=== PATIENT | female | born 1975 | race Two or more races ===

== ENCOUNTER 2025-03-03 08:01 | Emergency (ER) | payer OTHER ==
[~2025-03-03] VITALS: Ht 162.6 cm; Wt 114.4 kg
[~2025-03-03 08:01] MED LIST: CETI1TAB36 PO
--- NOTE | 2025-03-03 08:17 | ED.PDOC ---
HPI Comments 49-year-old female presents to the ED via EMS with a chief complaint of high blood pressure onset today (03/03/25). Per EMS, patient was experiencing dizziness, frequent urination, chest pressure, checked BP and it was over 200 systolic. Upon EMS arrival patient's BP was 239 systolic. Patient is concern for possible , LMP was August 2024, has not checked for . P:6 A:5. She took HTN medication at 01:00. PMHx HTN. Denies fever, chills, shortness of breath, abdominal pain, nausea, vomiting, diarrhea. No other symptoms or modifying factors present at this time. Chief Complaint: High Blood Pressure Time Seen by MD: 08:15 Reviewed Notes: Medications, Allergies Allergies: Coded Allergies: Cephalexin (Unverified Allergy, 01/15/13) Home Meds Active Scripts Amlodipine Besylate (NORVASC TABLET) 5 Mg Tb, 1 TAB PO DAILY for 10 Days, #10 TAB 5 Refills Prov:TANISHA CEJA MD 03/03/25 Lisinopril (Lisinopril) 5 Mg Tab, 5 MG PO BID for 10 Days, #20 TAB Prov:TANISHA CEJA MD 03/03/25 Reported Medications Cetirizine Hcl (ZYRTEC ALLERGY) 10 Mg Tab, 10 MG PO DAILY 01/15/13 Information Source: Patient, Emergency Med Personnel Mode of Arrival: EMS Severity: Moderate Timing: Days Duration: Since onset Prehospital treatment: None Location: Chest (L) Radiation: No Radiation Quality: Pressure Onset: At Rest Cardiac Risk Factors: HTN PE Risk Factors: None History of: None Modifying Factors: Nothing Past Medical History PAST MEDICAL HISTORY: Anemia, HTN Surgical History: Denies all surgeries FACE PAINTER History: No Pertinent FACE PAINTER History Family History Family History: Reviewed,noncontributory to illness, No family hx of Cancer, No family hx of DM, No family hx of Heart dash, No family hx of HTN, No family hx ofKidney dash, No family hx of Liver dash, No family hx of Lung dash, No family hx of Stroke Social History Smoker: Non-Smoker Alcohol: Denies ETOH Use Drugs: Denies Drug Use Lives In: Home Constitutional: denies: chills, diaphoresis, fatigue, fever, malaise, sweats, weakness, others EENTM: denies: blurred vision, double vision, ear bleeding, ear discharge, ear drainage, ear pain, ear ringing, eye pain, eye redness, hearing loss, mouth pain, mouth swelling, nasal discharge, nose bleeding, nose congestion, nose pain, photophobia, tearing, throat pain, throat swelling, voice changes, others Respiratory: denies: cough, hemoptysis, orthopnea, SOB at rest, shortness of breath, SOB with excertion, stridor, wheezing, others Cardiovascular: reports: chest pain; denies: dizzy spells, diaphoresis, Dyspnea on exertion, edema, irregular heart beat, left arm pain, lightheadedness, palpitations, PND, syncope, others Gastrointestinal: denies: abdomen distended, abdominal pain, blood streaked bowels, constipated, diarrhea, dysphagia, difficulty swallowing, hematemesis, melena, nausea, poor appetite, poor fluid intake, rectal bleeding, rectal pain, vomiting, others Genitourinary: reports: frequency; denies: abnormal vagina bleeding, burning, dyspareunia, dysuria, flank pain, hematuria, incontinence, pain, , vagina discharge, urgency, others Neurological: reports: dizziness, headache; denies: fainting, left sided numbness, left sided weakness, numbness, paresthesia, pre-existing deficit, right sided numbness, right sided weakness, seizure, speech problems, tingling, tremors, weakness, others Musculoskeletal: denies: back pain, gout, joint pain, joint swelling, muscle pain, muscle stiffness, neck pain, others Integumetry: denies: bruises, change in color, change in hair/nails, dryness, laceration, lesions, lumps, rash, wounds, others Allergic/Immunocompromised: denies: Difficulty Healing, Frequent Infections, Hives, Itching, others Hematologic/Lymphatic: denies: anemia, blood clots, easy bleeding, easy bruising, swollen glands, others Endocrine: denies: excessive hunger, excessive sweating, excessive thirst, excessive urination, flushing, intolerance to cold, intolerance to heat, unexplained weight gain, unexplained weight loss, others Psychiatric: denies: anxiety, bipolar disorder, depression, hopeless, panic disorder, schizophrenia, sleepless, suicidal, others All Other Systems: Reviewed and Negative Physical Exam General Appearance: Moderate Distress HEENT: Normal ENT Inspection, Pharynx Normal, TMs Normal Neck: Full Range of Motion, Non-Tender, Normal, Normal Inspection Respiratory: Chest Non-Tender, Lungs Clear, No Accessory Muscle Use, No Respiratory Distress, Normal Breath Sounds Cardiovascular: No Edema, No JVD, No Murmur, No Gallop, Normal Peripheral Pu lses, Regular Rate/Rhythm Breast Exam: Deferred Gastrointestinal: No Organomegaly, Non Tender, No Pulsatile Mass, Normal Bowel Sounds, Soft Genitalia: Deferred Pelvic: Deferred Rectal: Deferred Extremities: No calf tenderness, Normal capillary refill, Normal inspection, Normal range of motion, Non-tender, No pedal edema Musculoskeletal : Apperance: Normal Neurologic: Alert, reinforced ironworker II-XII nml as Tested, No Motor Deficits, Normal Affect, Normal Mood, No Sensory Deficits Cerebellar Function: NOT DONE Reflexes: NOT DONE Skin: Dry, Normal Color, Warm Peripheral Pulses: 3+ Radial (R), 3+ Radial (L) Lymphatic: No Adenopathy Was a procedure done? Was a procedure done?: No CP Differential Dx Differential Diagnosis: A-fib, A-Flutter, Angina, Anxiety / Panic Attack, Atrial Dysrhythmia, Electrolyte Disorder X-Ray, Labs, Meds, VS Vital Signs Date Time Temp Pulse Resp B/P (MAP) Pulse Ox O2 Delivery O2 Flow Rate FiO2 03/03/25 12:13 186/81 03/03/25 11:57 68 16 186/81 (116) 99 03/03/25 09:42 67 195/87 03/03/25 09:02 Room Air* 0 21 03/03/25 09:02 98.2 70 15 174/88 (116) 99 98.2 03/03/25 08:42 69 168/87 03/03/25 08:10 73 03/03/25 08:01 98.5 75 18 208/81 97 98.5 Lab Test 03/03/25 08:30 Range/Units White Blood Count 9.9 4.4-10.8 10^3/uL Red Blood Count 5.09 4.0-5.20 10^6/uL Hemoglobin 14.2 12.2-16.2 g/dL Hematocrit 41.9 36.0-46.0 % Mean Corpuscular Volume 82.3 80.0-100.0 fL Mean Corpuscular Hemoglobin 28.0 28.0-32.0 pg Mean Corpuscular Hemoglobin Concent 34.0 32.0-36.0 g/dL Red Cell Distribution Width 15.3 H 11.8-14.3 % Platelet Count 299 140-450 10^3/uL Mean Platelet Volume 9.4 6.9-10.8 fL Neutrophils (%) (Auto) 75.7 37.0-80.0 % Lymphocytes (%) (Auto) 17.0 10.0-50.0 % Monocytes (%) (Auto) 5.1 0.0-12.0 % Eosinophils (%) (Auto) 1.2 0.0-7.0 % Basophils (%) (Auto) 1.0 0.0-2.0 % Neutrophils # (Auto) 7.5 1.6-8.6 10 ^3/uL Lymphocytes # (Auto) 1.7 0.4-5.4 10 ^3/uL Monocytes # (Auto) 0.5 0-1.3 10 ^3/uL Eosinophils # (Auto) 0.1 0-0.8 10 ^3/uL Basophils # (Auto) 0.1 0-0.2 10 ^3/uL Nucleated Red Blood Cells 0.2 % Urine Color Colorless Yellow Urine Clarity Clear Clear Urine pH 6.5 5.0-9.0 Urine Specific Victor 1.007 1.001-1.035 Urine Protein Negative Negative Urine Ketones Negative Negative Urine Blood Negative Negative /uL Urine Nitrite Negative Negative Urine Bilirubin Negative Negative Urine Urobilinogen Normal Negative mg/dL Urine Leukocyte Esterase Negative Negative /uL Urine RBC 1 0 - 4 /hpf Urine Microscopic WBC 1 0-5 /HPF Urine Squamous Epithelial Cells Few <5 /hpf Urine Bacteria Few H None Seen /hpf Urine Glucose Normal Normal mg/dL Urine Test Negative Negative Sodium Level 141 136-145 mmol/L Potassium Level 3.8 3.5-5.1 mmol/L Chloride Level 105 98-107 mmol/L Carbon Dioxide Level 26 20-31 mmol/L Anion Gap 10 5-15 Blood Urea Nitrogen 9 9-23 mg/dL Creatinine 0.78 0.550-1.02 mg/dL Glomerular Filtration Rate Calc 93 >90 mL/min BUN/Creatinine Ratio 11.5 10.0-20.0 Serum Glucose 99 74-106 mg/dL Calcium Level 9.6 8.7-10.4 mg/dL Troponin I High Sensitivity < 3 L </=34 ng/L Current Medications Medications (Trade) Dose Ordered Sig/Americo Route Start Time Stop Time Status Last Admin Labetalol HCl (Labetalol HCl) 10 mg ONCE ONCE IV 03/03/25 08:15 03/03/25 08:16 DC 03/03/25 08:42 Clonidine HCl (Catapres Tablet) 0.2 mg ONCE ONCE PO 03/03/25 12:15 03/03/25 12:16 DC 03/03/25 12:13 Patient alert. Blood pressure elevated. She does not take care of herself. Saturation pristine on room air. Was given labetalol. Reviewed her history. Continue monitoring. Blood pressure normalized. Cardiac marker within normal limits. WBC within normal limits. Hemoglobin within normal limits pain Was given prescription of lisinopril Norvasc. Explained to the patient. Was told to follow up with her primary care physician. Was told to come back if there is any problem. Time of 1ST Reevaluation: 08:45 Reevaluation 1ST: Unchanged Patient Education/Counseling: Diagnosis, Treatment, Prognosis Family Education/Counseling: No Family Present SEPSIS Sepsis Screen Physician Orders Electrocardigram (03/03/25 08:13) Urine (03/03/25 ) Vital Signs Date Time Temp Pulse Resp B/P (MAP) Pulse Ox O2 Delivery O2 Flow Rate FiO2 03/03/25 12:13 186/81 03/03/25 11:57 68 16 186/81 (116) 99 03/03/25 09:42 67 195/87 03/03/25 09:02 Room Air* 0 21 03/03/25 09:02 98.2 70 15 174/88 (116) 99 98.2 03/03/25 08:42 69 168/87 03/03/25 08:10 73 03/03/25 08:01 98.5 75 18 208/81 97 98.5 Laboratory Tests Test 03/03/25 08:30 White Blood Count 9.9 10^3/uL (4.4-10.8) Medications Medications Dose Ordered Sig/Americo Route Start Time Stop Time Status Last Admin Dose Admin Clonidine HCl 0.2 mg ONCE ONCE PO 03/03/25 12:15 03/03/25 12:16 DC 03/03/25 12:13 Labetalol HCl 10 mg ONCE ONCE IV 03/03/25 08:15 03/03/25 08:16 DC 03/03/25 08:42 Departure 1 Departure Time of Disposition: 08:20 Impression: Primary Impression: Hypertensive emergency Disposition: 01 HOME / SELF CARE / HOMELESS Admit to: Med Surg Condition: Guarded e-Prescriptions Amlodipine Besylate (NORVASC TABLET) 5 Mg Tb 1 TAB PO DAILY for 10 Days, #10 TAB 5 Refills Prov: TANISHA CEJA MD 03/03/25 Lisinopril (Lisinopril) 5 Mg Tab 5 MG PO BID for 10 Days, #20 TAB Prov: TANISHA CEJA MD 03/03/25 Critical Care Note Critical Care Time?: No Stability Stability form required: No Heart Score Heart Score: Heart Score Response (Comments) Value History Slightly Suspicious 0 EKG Normal 0 Age 45-64 1 Risk Factors >3 or Hx ASHD 2 Troponin Normal limit 0 Total 3 I personally scribed for TANISHA CEJA MD ([email or web address]) on 03/03/25 at 08:17. Electronically submitted by Radha Hawkins ([email or web address]). TANISHA CEJA MD Mar 03, 2025 08:17
[2025-03-03] MEDS: LABETALOL HCL 20 MG/4 ML VL IV ONE (08:42)
[2025-03-03 09:02] VITALS: TEMP 98.2
[2025-03-03 09:02] LABS: Hematocrit 41.9 % (36.0-46.0); Hemoglobin 14.2 g/dL (12.2-16.2); Mean Corpuscular Hemoglobin 28.0 pg (28.0-32.0); Mean Corpuscular Volume 82.3 fL (80.0-100.0); Nucleated Red Blood Cells % 0.2 %
[2025-03-03 09:09] LABS: Chloride 105 mmol/L (98-107); Potassium 3.8 mmol/L (3.5-5.1); Sodium 141 mmol/L (136-145)
[2025-03-03 09:10] LABS: Anion Gap 10 (5-15); Calcium 9.6 mg/dL (8.7-10.4); Carbon Dioxide 26 mmol/L (20-31)
[2025-03-03 09:15] LABS: BUN/Creatinine Ratio 11.5 (10.0-20.0); Blood Urea Nitrogen 9 mg/dL (9-23); Glucose 99 mg/dL (74-106)
[2025-03-03 09:53] LABS: Urine Protein, UAD Negative (Negative)
[2025-03-03] MEDS ORDERED: LISI-275 PO (12:42)
[2025-03-03] MEDS ORDERED: AML5T PO (12:42)
[2025-03-03 13:15] VITALS: BP 180/78; PULSE 70; RESP 16; O2SAT 99
--- NOTE | 2025-03-03 14:14 | ECG ---
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
== END 2025-03-03 13:15 | disposition home or self-care (01) ==
LOC: EDBD 08:01 → ER 08:01
DX: I16.1 Hypertensive emergency (principal); Z79.899 Other long term (current) drug therapy; Z88.1 Allergy status to other antibiotic agents
CPT/HCPCS: 36415; 80048; 81001; 81025; 84484; 85025; 93005; 96374